=== PATIENT | male | born 1965 | race Two or more races ===

== ENCOUNTER 2018-11-28 21:21 | Emergency (ER) | payer BC ==
[~2018-11-28] VITALS: Ht 177.8 cm; Wt 102.1 kg
[2018-11-28 21:28] VITALS: BP 122/80
--- NOTE | 2018-11-28 21:28 | NUR ---
ED Nurse Note: pt walked in to ED C/O ABD pain 06/21 with Hx kidney stone per pt. Alert x4. VSS
--- NOTE | 2018-11-28 21:42 | Emergency Room Report ---
History of Present Illness General Chief Complaint: Diarrhea Source: Patient Present Illness HPI Presents with flank pain since last Friday. It Friday today. Is been mainly on the right side but sometimes the left side is also been bothering him. His history of multiple renal stones and believes that this is the problem. He has been taking ibuprofen at 1,600 mg every 4 hours. He complains about nausea and epigastric pain at this time. There is no vomiting. He has passed loose stools but denies any melena or hematochezia. He is had some sweats but denies fevers or chills. He is noticed blood in his urine. Usually he is able to pass the stone in this amount of time. He has been on Flomax in the past. He has had to have ultrasound breaking up of renal stones in the past. The pain 3/10 at this time but sometimes he gets up to see me severe. He took ibuprofen 4 hours ago. No fevers, chills, sore throat, chest pain, palpitations, shortness of breath, joint pain, rashes, depression, anxiety, visual changes, headache. 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 Nursing Documentation: PMH: Agreed; PSxH: Agreed Nursing Documentation-PMH Hx Diabetes: Yes - hyperglycemia Hx Gastrointestinal Problems: Yes Review of Systems All Other Systems: negative except mentioned in HPI Physical Exam Vital Signs Date Time Temp Pulse Resp B/P (MAP) Pulse Ox O2 Delivery O2 Flow Rate FiO2 11/28/18 21:24 98.4 84 16 121/87 (98) 95 Room Air Sp02 EP Interpretation: reviewed, normal General Appearance: well appearing, no apparent distress, GCS 15 Head: normocephalic Eyes: bilateral eye normal inspection, bilateral eye PERRL, bilateral eye EOMI ENT: moist mucus membranes Neck: supple Respiratory: lungs clear, normal breath sounds Cardiovascular #1: regular rate, rhythm Cardiovascular #2: 2+ radial (R) Gastrointestinal: normal inspection, normal bowel sounds, non tender, no mass, non-distended Genitourinary: no CVA tenderness Musculoskeletal: back normal, gait/station normal, normal range of motion Neurologic: alert, oriented x3, grossly normal Psychiatric: mood/affect normal Skin: no rash Medical Decision Making Diagnostic Impression: Primary Impression: right ureterolithiasis Additional Impressions: Renal colic Renal insufficiency ER Course Patient presents with flank pain epigastric pain and hematuria. Differential includes gastritis from ibuprofen, gastroenteritis, renal stone, UTI amongst others. The patient will be evaluated with EKG, labs and ultrasound. The patient will be treated with IV hydration, Zofran Pepcid, morphine. EKG was sinus rhythm rate of 78. Possible left atrial enlargement with incomplete right bundle branch block and left ventricular hypertrophy. Labs with microscopic hematuria. US with hydro on R. CT ordered. Morphine repeated. Awaiting CT. CT below. Improved. Discussed results with patient. He feels better and feels OK to go home. Discussed the importance of follow-up. Patient stable for outpatient observation and treatment. Labs Test 11/28/18 21:35 White Blood Count 8.0 K/UL (4.8-10.8) Red Blood Count 5.29 M/UL (4.70-6.10) Hemoglobin 15.5 G/DL (14.2-18.0) Hematocrit 44.2 % (42.0-52.0) Mean Corpuscular Volume 84 FL (80-99) Mean Corpuscular Hemoglobin 29.2 PG (27.0-31.0) Mean Corpuscular Hemoglobin Concent 35.0 G/DL (32.0-36.0) Red Cell Distribution Width 11.3 % (11.6-14.8) Platelet Count 180 K/UL (150-450) Mean Platelet Volume 11.3 FL (6.5-10.1) Neutrophils (%) (Auto) % (45.0-75.0) Lymphocytes (%) (Auto) % (20.0-45.0) Monocytes (%) (Auto) % (1.0-10.0) Eosinophils (%) (Auto) % (0.0-3.0) Basophils (%) (Auto) % (0.0-2.0) Differential Total Cells Counted 100 Neutrophils % (Manual) 58 % (45-75) Lymphocytes % (Manual) 38 % (20-45) Monocytes % (Manual) 3 % (1-10) Eosinophils % (Manual) 1 % (0-3) Basophils % (Manual) 0 % (0-2) Band Neutrophils 0 % (0-8) Platelet Estimate Adequate Platelet Morphology Normal Red Blood Cell Morphology Normal Prothrombin Time 9.7 SEC (9.30-11.50) Prothromb Time International Ratio 0.9 (0.9-1.1) Activated Partial Thromboplast Time 25 SEC (23-33) Urine Color Pale yellow Urine Appearance Clear Urine pH 5 (4.5-8.0) Urine Specific [place] 1.020 (1.005-1.035) Urine Protein Negative (NEGATIVE) Urine Glucose (UA) Negative (NEGATIVE) Urine Ketones Negative (NEGATIVE) Urine Blood 5+ (NEGATIVE) Urine Nitrite Negative (NEGATIVE) Urine Bilirubin Negative (NEGATIVE) Urine Urobilinogen Normal MG/DL (0.0-1.0) Urine Leukocyte Esterase 2+ (NEGATIVE) Urine RBC 10-15 /HPF (0 - 0) Urine WBC 5-10 /HPF (0 - 0) Urine Squamous Epithelial Cells None /LPF (NONE/OCC) Urine Bacteria Occasional /HPF (NONE) Sodium Level 138 MMOL/L (136-145) Potassium Level 4.0 MMOL/L (3.5-5.1) Chloride Level 104 MMOL/L (98-107) Carbon Dioxide Level 26 MMOL/L (21-32) Anion Gap 8 mmol/L (5-15) Blood Urea Nitrogen 21 mg/dL (7-18) Creatinine 1.8 MG/DL (0.55-1.30) Estimat Glomerular Filtration Rate 39.7 mL/min (>60) Glucose Level 112 MG/DL (74-106) Calcium Level 9.5 MG/DL (8.5-10.1) Total Bilirubin 0.5 MG/DL (0.2-1.0) Aspartate Amino Transf (AST/SGOT) 14 U/L (15-37) Alanine Aminotransferase (ALT/SGPT) 24 U/L (12-78) Alkaline Phosphatase 80 U/L (46-116) Total Protein 7.3 G/DL (6.4-8.2) Albumin 4.3 G/DL (3.4-5.0) Globulin 3.0 g/dL Albumin/Globulin Ratio 1.4 (1.0-2.7) Lipase 199 U/L (73-393) EKG Diagnostic Results Rate: normal Rhythm: NSR ST Segments: no acute changes Rhythm Strip Diag. Results EP Interpretation: yes Rhythm: NSR, no PVC's, no ectopy CT/MRI/US Diagnostic Results CT/MRI/US Diagnostic Results #1: Imaging Test Ordered: us Impression 1. Ureteral jets not identified on this study. This can be a normal finding, but in this setting ureteral obstruction cannot be definitively excluded. 2. Left hydroureteronephrosis at least partially seen proximally. 3. Prominent postvoid residual seen in the urinary bladder, 112 mL. 4. If there is concern for obstructive ureteral process, recommend cross- sectional imaging. 5. Multiple bilateral nonobstructing nephroliths, the largest on the left 1.3 cm and largest on the right 0.[address]/MRI/US Diagnostic Results #2: Imaging Test Ordered: CT abd pelvis Impression 1. Right ureterolith above the right UVJ, 0.7 cm in size, causing at least moderate right hydroureteronephrosis. 2. Numerous bilateral nonobstructing nephroliths as above. 3. Additional benign and chronic findings above. Last Vital Signs Date Time Temp Pulse Resp B/P (MAP) Pulse Ox O2 Delivery O2 Flow Rate FiO2 11/29/18 02:45 98.2 70 18 130/79 98 Room Air Status: improved Disposition: HOME, SELF-CARE Condition: Improved Scripts Tamsulosin HCl (Flomax) 0.4 Mg Cap.er.24h 0.4 MG ORAL DAILY, #14 CAP Prov: Brandon Arshad MD 11/29/18 Hydrocodone Bit/Acetaminophen 5-325* (NORCO 5-325*) 1 Each Tablet 1 TAB ORAL Q6H PRN for For Pain, #10 TAB 0 Refills Prov: Brandon Arshad MD 11/29/18 Ibuprofen* (MOTRIN*) 600 Mg Tablet 600 MG ORAL Q6H PRN for For Pain, #20 TAB 0 Refills Prov: Brandon Arshad MD 11/29/18 Brandon Arshad MD Nov 28, 2018 21:42
[2018-11-28] MEDS ORDERED: Morphine Sulfate 2mg/ml Inj(IV/IM USE ONLY) IVP ONE (21:45)
[2018-11-28 21:47] LABS: APPEARANCE,URINE CLEAR; BILIRUBIN, URINE NEGATIVE (NEGATIVE); COLOR,URINE PALE YELLOW; GLUCOSE, URINE (UA) NEGATIVE (NEGATIVE); KETONES,URINE NEGATIVE (NEGATIVE); LEUKOCYTE ESTERASE ,URINE 2+ (NEGATIVE); NITRITE,URINE NEGATIVE (NEGATIVE); PH,URINE 5 (4.5-8.0); PROTEIN,URINE NEGATIVE (NEGATIVE); UROBILINOGEN,URINE NORMAL MG/DL (0.0-1.0)
[2018-11-28 21:56] LABS: ANION GAP 8 mmol/L (5-15); BLOOD UREA NITROGEN 21 mg/dL (7-18); CALCIUM 9.5 MG/DL (8.5-10.1); CARBON DIOXIDE 26 MMOL/L (21-32); CHLORIDE 104 MMOL/L (98-107); CREATININE 1.8 MG/DL (0.55-1.30); SODIUM 138 MMOL/L (136-145)
[2018-11-28 22:01] LABS: ALANINE AMINOTRANSFERASE 24 U/L (12-78); ALBUMIN 4.3 G/DL (3.4-5.0); ALBUMIN/GLOBULIN RATIO 1.4 (1.0-2.7); ALKALINE PHOSPHATASE 80 U/L (46-116); ASPARTATE AMINO TRANSFERASE 14 U/L (15-37); BILIRUBIN,TOTAL 0.5 MG/DL (0.2-1.0); INR 0.9 (0.9-1.1)
[2018-11-28 22:19] LABS: HEMATOCRIT 44.2 % (42.0-52.0); HEMOGLOBIN 15.5 G/DL (14.2-18.0); MEAN CORPUSCULAR VOLUME 84 FL (80-99); PLATELET COUNT 180 K/UL (150-450); RED BLOOD COUNT 5.29 M/UL (4.70-6.10); RED CELL DISTRIBUTION WIDTH 11.3 % (11.6-14.8)
[2018-11-29 00:01] VITALS: BP 118/77
--- NOTE | 2018-11-29 00:01 | NUR ---
ED Nurse Note: pt in bed, VSS. will continue to monitor.
[2018-11-29] MEDS ORDERED: Tamsulosin 0.4mg cap ORAL STA (00:59)
--- NOTE | 2018-11-29 01:00 | Diagnostic Imaging Report ---
EXAM: US Abdomen Complete CLINICAL HISTORY: FLANK TECHNIQUE: Real-time ultrasound of the abdomen (complete) with image documentation. COMPARISON: No relevant prior studies available. FINDINGS: Liver: Unremarkable. No mass. No intrahepatic bile duct dilation. Gallbladder: Unremarkable. No gallstones. Common bile duct: Unremarkable as visualized. No stones. No dilation. Pancreas: Unremarkable as visualized. Kidneys: Multiple bilateral nonobstructing nephroliths, the largest on the left 1.3 cm and largest on the right 0.5 cm. Left hydroureteronephrosis at least partially seen proximally. Right kidney: 12.3 cm. Left kidney: 12.9 cm. Right renal pelvis: Nondilated. Left renal pelvis: At least 1.5 cm. Spleen: Unremarkable. No splenomegaly. Aorta: Unremarkable. No aneurysm. Inferior vena cava: Unremarkable. Other findings: Ureteral jets not identified on this study, ureteral obstruction cannot be definitively excluded. Prominent postvoid residual seen in the urinary bladder, 112 mL. IMPRESSION: 1. Ureteral jets not identified on this study. This can be a normal finding, but in this setting ureteral obstruction cannot be definitively excluded. 2. Left hydroureteronephrosis at least partially seen proximally. 3. Prominent postvoid residual seen in the urinary bladder, 112 mL. 4. If there is concern for obstructive ureteral process, recommend cross- sectional imaging. 5. Multiple bilateral nonobstructing nephroliths, the largest on the left 1.3 cm and largest on the right 0.5 cm.
[2018-11-29] MEDS ORDERED: Morphine Sulfate 4mg/ml Inj (IV USE ONLY) IVP ONE (01:15)
[2018-11-29 02:00] VITALS: BP 128/81
--- NOTE | 2018-11-29 02:13 | Diagnostic Imaging Report ---
EXAM: CT Abdomen and Pelvis Without Intravenous Contrast CLINICAL HISTORY: FLANK TECHNIQUE: Axial computed tomography images of the abdomen and pelvis without intravenous contrast. CTDI is 19mGy and DLP is 1006 mGy-cm. One or more of the following dose reduction techniques were used: automated exposure control, adjustment of the mA and/or kV according to patient size, use of iterative reconstruction technique. Coronal and sagittal reformatted images were created and reviewed. COMPARISON: Same day renal ultrasound. FINDINGS: Lung bases: Unremarkable. No mass. No consolidation. ABDOMEN: Liver: Unremarkable. Gallbladder and bile ducts: Unremarkable. No calcified stones. No ductal dilation. Pancreas: Unremarkable. No ductal dilation. Spleen: Unremarkable. No splenomegaly. Adrenals: Unremarkable. No mass. Kidneys and ureters: At least 6 right nonobstructing nephroliths the largest of which measures 0.5 cm. At least 15 left nonobstructing nephroliths, the largest of which measures 0.8 cm. Mid-distal right ureterolith measuring 0.7 cm above the UVJ causing at least moderate right hydroureteronephrosis. Stomach and bowel: Scattered minimal colonic diverticulosis without acute diverticulitis. No obstruction. PELVIS: Appendix: Normal appendix. Bladder: Unremarkable. No stones. Reproductive: Unremarkable as visualized. ABDOMEN and PELVIS: Intraperitoneal space: Unremarkable. No free air. No significant fluid collection. Bones/joints: Multilevel age-related degenerative spine findings. No acute fracture. No dislocation. Soft tissues: Bilateral fat-containing indirect inguinal hernias larger on the right. Vasculature: Unremarkable. No abdominal aortic aneurysm. Lymph nodes: Unremarkable. No enlarged lymph nodes. IMPRESSION: 1. Right ureterolith above the right UVJ, 0.7 cm in size, causing at least moderate right hydroureteronephrosis. 2. Numerous bilateral nonobstructing nephroliths as above. 3. Additional benign and chronic findings above.
[2018-11-29] MEDS ORDERED: NORCO 5-325 TA1 EACH ORAL (02:41)
[2018-11-29] MEDS ORDERED: FLOMAX0.4 MG ORAL (02:41)
[2018-11-29] MEDS ORDERED: IBUPROFEN600 MG ORAL (02:41)
[2018-11-29 02:45] VITALS: BP 130/79
--- NOTE | 2018-11-29 02:45 | NUR ---
ER DISCHARGE NOTE: Patient is cleared to be discharged per ERMD, pt is aox4, on room air, with stable vital signs. pt was given dc and prescription instructions, pt was able to verbalize understanding, pt id band and iv site removed without complications. pt is able to ambulate with steady gait. pt took all belongings.
[2018-11-29] MEDS ORDERED: Tamsulosin 0.4mg cap ORAL SCH (21:00)
--- NOTE | 2018-12-01 11:10 | Cardiology Report ---
APPROVED REPORT EKG Measurement Heart [id number] Normal sinus rhythm Possible Left atrial enlargement Incomplete right bundle branch block Left ventricular hypertrophy Abnormal ECG
== END 2018-11-29 02:45 | disposition home or self-care (01) ==
LOC: EMR 22:20
DX: N20.1 Calculus of ureter (principal); N28.9 Disorder of kidney and ureter, unspecified; E11.9 Type 2 diabetes mellitus without complications; F17.200 Nicotine dependence, unspecified, uncomplicated; R11.0 Nausea
CPT/HCPCS: 36415; 74176; 76770; 80053; 81003; 83690; 85007; 85025; 85610; 85730; 93005; 96361; 96374; 96375; 96376; 99284; J2270; J2405; S0028

== ENCOUNTER 2019-10-19 21:29 | Emergency (ER) | payer BC ==
[~2019-10-19] VITALS: Ht 177.8 cm; Wt 102.1 kg
[~2019-10-19 21:29] MED LIST: FLOMAX0.4 MG ORAL; IBUPROFEN600 MG ORAL; NORCO 5-325 TA1 EACH ORAL
[2019-10-19 21:50] VITALS: BP 147/98
--- NOTE | 2019-10-19 21:50 | NUR ---
ED Nurse Note: Pt walked into ED from home for c/o facial rash and bumps to his scalp that have become more uncomfortable tonight. Pt also reports a foregin body sensation to L eye. Pt states he was recently seen at urgent care and diagnosed with shingles in which he was prescribed acyclovir. Pt is concerned with shingles getting into his L eye since there is a rash right under his L eye. Pt notes rash and bumps to head are painful and have a burning like sensation. Pt is otherwise in no acute distress. He is aaox4, breathing is normal and unlabored and pt is ambulatory with steady gait.
[2019-10-19] MEDS ORDERED: Fluorescein Strips LEFT EYE ONE (22:30)
[2019-10-19] MEDS ORDERED: Tetracaine 0.5% Opth 4ml Soln LEFT EYE ONE (22:30)
--- NOTE | 2019-10-19 22:30 | NUR ---
ED Nurse Note: ERMD bedside for exam and speaking with patient.
[2019-10-19] MEDS ORDERED: Erythromycin Opth Ointment 1gm ONE (22:51)
--- NOTE | 2019-10-19 23:01 | Emergency Room Report ---
History of Present Illness General Chief Complaint: Skin Rash/Abscess Source: Patient Present Illness HPI Patient 53-year-old male presents after increased left-sided facial rash. Reports of increased foreign body sensation to his left eye. Reports having burning sensation to his forehead. He was recently prescribed acyclovir. He had no known recent trauma. Had also had a patch to his forehead and top of his scalp which had become more discomfort. Denies any fever. Denies any local other locations of problems currently. Allergies: Coded Allergies: No Known Allergies (Unverified , 11/28/18) COVID-19 Screening Contact w/high risk pt: No Recent Travel to affected area: No Experienced COVID-19 symptoms?: No COVID-19 Testing performed WARP DOFFER: No Patient History Past Medical History: see triage record Reviewed Nursing Documentation: PMH: Agreed; PSxH: Agreed Nursing Documentation-PMH Hx Diabetes: Yes - hyperglycemia Hx Gastrointestinal Problems: Yes Review of Systems All Other Systems: negative except mentioned in HPI Physical Exam Vital Signs Date Time Temp Pulse Resp B/P (MAP) Pulse Ox O2 Delivery O2 Flow Rate FiO2 10/19/19 21:42 98.2 89 19 147/98 (114) 100 Room Air Sp02 EP Interpretation: reviewed, normal General Appearance: normal inspection, well appearing, no apparent distress, alert, GCS 15 Head: atraumatic Eyes: bilateral eye PERRL, bilateral eye EOMI, bilateral eye anticteric, bilateral eye other - No fluorescein dye uptake, conjunctiva injected ENT: normal ENT inspection, hearing grossly normal, normal voice Neck: normal inspection, no bony tend Respiratory: normal inspection, no respiratory distress, no retraction Cardiovascular #1: normal inspection Gastrointestinal: normal inspection Musculoskeletal: normal inspection, back normal, normal range of motion Neurologic: alert, 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 Differential diagnosis includes not limited to conjunctivitis, zoster, keratitis among others. Patient's visual acuity was noted to be slightly diminished in his left eye. Exam with fluorescein and tetracaine did not reveal any definite dye uptake. Patient has some rash to his forehead which is consistent with a BUN V1 branch shingles. Patient was discussed with Dr. Nash for opthalmology who agreed to see the patient in the office in the morning. Erythromycin ointment eye ointment was applied and patient was given prescription for prednisone. He was advised to follow-up with Dr. Nash at 9 AM. Patient was advised to return if he has any worsening of condition or other concerns. Last Vital Signs Date Time Temp Pulse Resp B/P (MAP) Pulse Ox O2 Delivery O2 Flow Rate FiO2 10/19/19 21:42 98.2 89 19 147/98 (114) 100 Room Air Status: improved Disposition: HOME, SELF-CARE Condition: Stable Scripts Prednisone* (PREDNISONE*) 20 Mg Tablet 60 MG ORAL DAILY, #15 TAB Prov: Jeff Greene MD 10/19/19 Referrals: NON PHYSICIAN (PCP) Jeff Greene MD Oct 19, 2019 23:01
[2019-10-19] MEDS ORDERED: PREDNISONE20 MG ORAL (23:04)
[2019-10-19 23:15] VITALS: BP 145/90
--- NOTE | 2019-10-19 23:15 | NUR ---
ER DISCHARGE NOTE: Patient is cleared to be discharged per ERMD, pt is aox4, on room air, with stable vital signs. pt was given dc and prescription instructions, pt was able to verbalize understanding, pt id band removed. pt is able to ambulate with steady gait. pt took all belongings.
[2019-10-20] MEDS ORDERED: Erythromycin Opth Ointment 1gm LEFT EYE ONE (21:00)
== END 2019-10-19 22:00 | disposition home or self-care (01) ==
LOC: EMR 21:50
DX: B02.8 Zoster with other complications (principal); E11.9 Type 2 diabetes mellitus without complications
CPT/HCPCS: 99283